=== PATIENT | female | born 1995 | race African-American/Black ===

== ENCOUNTER 2017-03-05 13:33 | Emergency (ER) | payer MEDICAID ==
[~2017-03-05] VITALS: Ht 167.6 cm; Wt 52.2 kg
[~2017-03-05 13:33] MED LIST: ATIVAN1 MG ORAL; KEFLEX500 MG ORAL; METRONIDAZOLE500 MG ORAL; NITROFURANTOIN100 MG PO; NKM; ZOFRAN4 MG ORAL
[2017-03-05] MEDS ORDERED: FLUDROCORTISON0.1 MG PO (13:45)
--- NOTE | 2017-03-05 14:06 | Emergency Room Report ---
History of Present Illness General Chief Complaint: Dizziness Source: Patient Present Illness HPI Patient is a 21-year-old female presents after syncopal episode. Patient had multiple previous episodes of syncope in the past. Patient had prior history of neurocardiogenic syncope. Patient had prior to her symptoms of feeling lightheaded prior to passing out. Patient had been taking fludrocortisone for quite some time. The patient reported having multiple episodes of similar symptoms in the past. Patient denies prior history of anemia. She states that she's had prior cardiac workup. As reports feeling somewhat weak. Allergies: Coded Allergies: No Known Allergies (Unverified , 03/29/13) Patient History Past Medical History: other - syncope Last Menstrual Period: 02/15/2017 Now: No Reviewed Nursing Documentation: PMH: Agreed, PSxH: Agreed Nursing Documentation-PMH Past Medical History: No History, Except For Hx Cardiac Problems: Yes - Neuro-cardiogenic syncope Hx Hypertension: No Hx Pacemaker: No Hx Asthma: No Hx COPD: No Hx Diabetes: No Hx Cancer: No Hx Gastrointestinal Problems: No Hx Dialysis: No Hx Neurological Problems: No Hx Cerebrovascular Accident: No Hx Seizures: No Review of Systems All Other Systems: negative except mentioned in HPI Physical Exam Vital Signs Date Time Temp Pulse Resp B/P Pulse Ox O2 Delivery O2 Flow Rate FiO2 03/05/17 13:38 98.1 98 16 118/79 98 Room Air Sp02 EP Interpretation: reviewed, normal General Appearance: normal inspection, well appearing, no apparent distress, alert, GCS 15, non-toxic Head: atraumatic ENT: normal ENT inspection, hearing grossly normal, normal voice Neck: normal inspection, full range of motion, supple, no bony tend Respiratory: normal inspection, lungs clear, normal breath sounds, no respiratory distress, no retraction, no wheezing Cardiovascular #1: normal peripheral pulses, no edema, tachycardia Gastrointestinal: normal inspection, normal bowel sounds, non tender, soft, no guarding, no hernia Genitourinary: no CVA tenderness Musculoskeletal: normal inspection, back normal, normal range of motion Neurologic: normal inspection, alert, responsive, speech normal Psychiatric: normal inspection, judgement/insight normal, mood/affect normal Skin: normal inspection, normal color, no rash Medical Decision Making Diagnostic Impression: Primary Impression: Dehydration Additional Impression: Syncope ER Course Patient presented for syncope. Differential diagnosis included but not limited to syncope versus seizure . Potential causes for syncope included arrhythmia, dehydration, acute coronary syndrome, severe anemia, pulmonary embolus. Because of complexity of patient's case laboratory testing and imaging studies were ordered. EKG was ordered. The patient was noted be somewhat tachycardic. Patient started on IV fluids. Patient was noted to have improvement in her symptoms after IV fluids. Labs Test 03/05/17 14:00 03/05/17 14:46 Urine HCG, Qualitative Negative White Blood Count 3.5 K/UL (4.8-10.8) Red Blood Count 4.22 M/UL (4.20-5.40) Hemoglobin 13.3 G/DL (12.0-16.0) Hematocrit 41.8 % (37.0-47.0) Mean Corpuscular Volume 99 FL (80-99) Mean Corpuscular Hemoglobin 31.5 PG (27.0-31.0) Mean Corpuscular Hemoglobin Concent 31.8 G/DL (32.0-36.0) Red Cell Distribution Width 13.0 % (11.6-14.8) Platelet Count 243 K/UL (150-450) Mean Platelet Volume 7.0 FL (6.5-10.1) Neutrophils (%) (Auto) 60.8 % (45.0-75.0) Lymphocytes (%) (Auto) 19.6 % (20.0-45.0) Monocytes (%) (Auto) 12.1 % (1.0-10.0) Eosinophils (%) (Auto) 6.4 % (0.0-3.0) Basophils (%) (Auto) 1.1 % (0.0-2.0) Sodium Level 141 mEQ/L (135-145) Potassium Level 4.1 mEQ/L (3.4-4.9) Chloride Level 100 mEQ/L (98-107) Carbon Dioxide Level 27 mEQ/L (20-30) Anion Gap 14 (5-15) Blood Urea Nitrogen 11 mg/dL (7-23) Creatinine 0.7 mg/dL (0.5-0.9) Estimat Glomerular Filtration Rate > 60 mL/min (>60) Glucose Level 76 mg/dL (74-106) Calcium Level 9.2 mg/dL (8.6-10.2) Total Bilirubin 0.4 mg/dL (0.0-1.2) Aspartate Amino Transf (AST/SGOT) 22 U/L (5-40) Alanine Aminotransferase (ALT/SGPT) 13 U/L (3-33) Alkaline Phosphatase 53 U/L (35-104) Total Protein 7.1 g/dL (6.6-8.7) Albumin 4.3 g/dL (3.5-5.2) Globulin 2.8 g/dL Albumin/Globulin Ratio 1.5 (1.0-2.7) EKG Diagnostic Results Rate: normal Rhythm: NSR - 85 ST Segments: other - incomplete RBBB Rhythm Strip Diag. Results EP Interpretation: yes Rhythm: NSR - 90, no PVC's, no ectopy Last Vital Signs Date Time Temp Pulse Resp B/P Pulse Ox O2 Delivery O2 Flow Rate FiO2 03/05/17 13:38 98.1 98 16 118/79 98 Room Air Status: improved Disposition: HOME, SELF-CARE Condition: Stable SlavaKeagan Mar 05, 2017 14:06
[2017-03-05 14:58] LABS: BASOPHILS % (AUTO) 1.1 % (0.0-2.0); EOSINOPHILS % (AUTO) 6.4 % (0.0-3.0); LYMPHOCYTES % (AUTO) 19.6 % (20.0-45.0); MEAN CORPUSCULAR HEMOGLOBIN 31.5 PG (27.0-31.0); MEAN CORPUSCULAR HGB CONC 31.8 G/DL (32.0-36.0); MEAN CORPUSCULAR VOLUME 99 FL (80-99); MONOCYTES % (AUTO) 12.1 % (1.0-10.0); NEUTROPHILS % (AUTO) 60.8 % (45.0-75.0); PLATELET COUNT 243 K/UL (150-450); RED BLOOD COUNT 4.22 M/UL (4.20-5.40); WHITE BLOOD COUNT 3.5 K/UL (4.8-10.8)
[2017-03-05 15:05] LABS: ALANINE AMINOTRANSFERASE 13 U/L (3-33); ALBUMIN/GLOBULIN RATIO 1.5 (1.0-2.7); ANION GAP 14 (5-15); ASPARTATE AMINO TRANSFERASE 22 U/L (5-40); CALCIUM 9.2 mg/dL (8.6-10.2); CARBON DIOXIDE 27 mEQ/L (20-30); CHLORIDE 100 mEQ/L (98-107); CREATININE 0.7 mg/dL (0.5-0.9); GLOMERULAR FILTRATION RATE > 60 mL/min (>60); HEMOLYSIS 3; POTASSIUM 4.1 mEQ/L (3.4-4.9); SODIUM 141 mEQ/L (135-145); TOTAL PROTEIN 7.1 g/dL (6.6-8.7)
[2017-03-05 16:22] VITALS: BP_SYST 123; BP_SYST 125; BP_SYST 129; BP_DIAS 66; BP_DIAS 74; BP_DIAS 75; BP_DIAS 77
[2017-03-05 16:37] VITALS: BP 129/77
[2017-03-05 16:39] VITALS: BP 129/77
--- NOTE | 2017-03-09 00:27 | Cardiology Report ---
APPROVED REPORT EKG Measurement Heart [id number] Normal sinus rhythm Nonspecific T wave abnormality Abnormal ECG
== END 2017-03-05 16:46 | disposition home or self-care (01) ==
LOC: EMR 15:03
DX: R55 Syncope and collapse (principal); E86.0 Dehydration
CPT/HCPCS: 36415; 80053; 81025; 85025; 93005; 96360; 96374

== ENCOUNTER 2017-10-29 13:39 | Emergency (ER) | payer MEDICAID ==
[~2017-10-29] VITALS: Ht 167.6 cm; Wt 53.1 kg
[~2017-10-29 13:39] MED LIST changes: +FLUDROCORTISON0.1 MG PO
[2017-10-29] MEDS ORDERED: ZYRTEC10 MG ORAL (14:00)
[2017-10-29] MEDS ORDERED: ALBUTEROL SULF8.5 GM INH (14:00)
--- NOTE | 2017-10-29 14:04 | Emergency Room Report ---
History of Present Illness General Chief Complaint: Upper Respiratory Illness Source: Patient Present Illness HPI Patient presents with complaints of sore throat Bodyache General weakness Nasal congestion symptoms ongoing for the past 7 days Patient started antibiotics about 7 days ago for a UTI and has just finished a Denies any dysuria or frequency denies any abdominal pain Denies any chest pain however she has a mild cough denies any neck pain or photophobia Allergies: Coded Allergies: No Known Allergies (Unverified , 03/29/13) Patient History Past Medical History: see triage record Pertinent Family History: none Last Menstrual Period: 10/11/17 Now: Yes : 2 Para: 0 Reviewed Nursing Documentation: PMH: Agreed, PSxH: Agreed Nursing Documentation-PMH Past Medical History: No History, Except For Hx Cardiac Problems: Yes - Neuro-cardiogenic syncope Hx Hypertension: No Hx Pacemaker: No Hx Asthma: No Hx COPD: No Hx Diabetes: No Hx Cancer: No Hx Gastrointestinal Problems: No Hx Dialysis: No Hx Neurological Problems: No Hx Cerebrovascular Accident: No Hx Seizures: No Review of Systems All Other Systems: negative except mentioned in HPI Physical Exam Vital Signs Date Time Temp Pulse Resp B/P (MAP) Pulse Ox O2 Delivery O2 Flow Rate FiO2 10/29/17 13:48 97.9 84 18 125/80 100 Room Air Sp02 EP Interpretation: reviewed, normal General Appearance: well appearing, no apparent distress Head: normocephalic, atraumatic Eyes: bilateral eye PERRL, bilateral eye EOMI ENT: hearing grossly normal, TMs + canals normal, uvula midline, other - Mild pharyngeal erythema bilaterally, no pustules Neck: full range of motion, supple, no meningismus, no bony tend Respiratory: lungs clear, normal breath sounds, no rhonchi, no respiratory distress, no retraction, no accessory muscle use Cardiovascular #1: normal peripheral pulses, regular rate, rhythm, no edema, no gallop, no JVD, no murmur Gastrointestinal: normal bowel sounds, non tender, soft, no mass, no organomegaly, non-distended, no guarding, no hernia, no pulsatile mass, no rebound Genitourinary: no CVA tenderness Musculoskeletal: normal inspection Neurologic: oriented x3, responsive, supervisor frame sample and pattern III-XII nml as tested, motor strength/ tone normal, sensory intact Psychiatric: mood/affect normal Skin: normal color, palpation normal, other - Scar midforehead Lymphatic: normal inspection, no adenopathy Medical Decision Making Diagnostic Impression: Primary Impression: flu like symptoms ER Course Multiple differentials are considered Patient's symptoms clinical exam point to what appears to be likely viral syndrome I do not suspect obvious meningitis patient's throat exam does not reveal pustules or evidence of bacterial infection Patient does not appear septic or toxic and will have initial conservative outpatient trial I did discuss with the patient that on her last several visits her white blood cell count has been low She reports that she has not had this followed up and I did reiterate the importance of following this up closely as it could be sinus multiple other medical problems Last Vital Signs Date Time Temp Pulse Resp B/P (MAP) Pulse Ox O2 Delivery O2 Flow Rate FiO2 10/29/17 13:48 97.9 84 18 125/80 100 Room Air Status: unchanged Disposition: HOME, SELF-CARE Condition: Stable Scripts Albuterol Sulfate* (ALBUTEROL SULFATE MDI*) 8.5 Gm Hfa.aer.ad 2 PUFF INH Q6H, #1 EA 0 Refills Prov: NIESHA PETERS D.O. 10/29/17 Cetirizine Hcl* (ZYRTEC*) 10 Mg Tablet 10 MG ORAL DAILY, #20 TAB 0 Refills Prov: NIESHA PETERS D.O. 10/29/17 Patient Instructions: Influenza, Adult, [id number] Additional Instructions: Patient is provided with the discharge instructions notified to follow up with primary doctor in the next 2-3 days otherwise return to the er with any worsening symptoms. Please note that this report is being documented using [employer] technology. This can lead to erroneous entry secondary to incorrect interpretation by the dictating instrument. NIESHA PETERS D.O. Oct 29, 2017 14:04
[2017-10-29 14:17] VITALS: BP 128/85
== END 2017-10-29 14:26 | disposition home or self-care (01) ==
LOC: EMR 14:08
DX: J11.1 Influenza due to unidentified influenza virus with other respiratory manifestations (principal)
CPT/HCPCS: 99284

== ENCOUNTER 2018-06-17 14:50 | Emergency (ER) | payer MEDICAID ==
[~2018-06-17] VITALS: Ht 167.6 cm; Wt 54.4 kg
[~2018-06-17 14:50] MED LIST changes: +ALBUTEROL SULF8.5 GM INH; +ZYRTEC10 MG ORAL
[2018-06-17 15:12] VITALS: BP 125/86
--- NOTE | 2018-06-17 15:21 | Emergency Room Report ---
History of Present Illness General Chief Complaint: Skin Rash/Abscess Source: Patient Present Illness HPI Patient presents with complaints of small irritated lesions in both axillary area She reports that 2 days ago she had shaved her axilla And yesterday she noticed some mild red lesions and today they have become more painful Denies any fevers or chills denies any discharge Denies any chest pain or shortness of breath denies any dysuria frequency Denies any back or flank pain Allergies: Coded Allergies: No Known Allergies (Unverified , 03/29/13) Patient History Past Medical History: see triage record Pertinent Family History: none Last Menstrual Period: 06/10/2018 Now: No Reviewed Nursing Documentation: PMH: Agreed; PSxH: Agreed Nursing Documentation-PMH Past Medical History: No History, Except For Hx Cardiac Problems: Yes - Vasovagal syncope Hx Hypertension: No Hx Pacemaker: No Hx Asthma: No Hx COPD: No Hx Diabetes: No Hx Cancer: No Hx Gastrointestinal Problems: No Hx Dialysis: No Hx Neurological Problems: No Hx Cerebrovascular Accident: No Hx Seizures: No Review of Systems All Other Systems: negative except mentioned in HPI Physical Exam Vital Signs Date Time Temp Pulse Resp B/P (MAP) Pulse Ox O2 Delivery O2 Flow Rate FiO2 06/17/18 15:03 98.4 95 15 125/86 98 Room Air 98.4 Sp02 EP Interpretation: reviewed, normal General Appearance: well appearing, no apparent distress Head: normocephalic, atraumatic Eyes: bilateral eye PERRL, bilateral eye EOMI ENT: hearing grossly normal, normal pharynx Neck: supple Respiratory: lungs clear Cardiovascular #1: regular rate, rhythm, no edema Gastrointestinal: non tender, soft Musculoskeletal: normal inspection Neurologic: alert, oriented x3, responsive Skin: other - Small follicular irritation regions bilaterally in both axilla. No obvious fluctuance. Mild erythema is noted. Patient also has evidence of keloid formations in the upper shoulder. The hair in the axilla has already started 2 grow, and therefore clear evaluation of the skin is difficult however patient could potentially have early signs of keloid formation from chronic trauma as well. Given the acute discomfort patient is placed on oral antibiotics does not appear to be systemic and is appropriate for close outpatient follow-up Lymphatic: no adenopathy Medical Decision Making Diagnostic Impression: Primary Impression: Folliculitis ER Course Patient has findings consistent with folliculitis Given the bilateral appearance is placed on oral antibiotics At this time there are no signs requiring incision No obvious abscess formation And patient requires close outpatient follow-up Last Vital Signs Date Time Temp Pulse Resp B/P (MAP) Pulse Ox O2 Delivery O2 Flow Rate FiO2 06/17/18 15:12 98.6 95 16 125/86 98 Room Air 98.6 Status: unchanged Disposition: HOME, SELF-CARE Condition: Stable Scripts Ibuprofen* (MOTRIN*) 600 Mg Tablet 600 MG ORAL Q8H PRN for For Pain, #20 TAB 0 Refills Prov: Yakov Moses DO 06/17/18 Cephalexin* (KEFLEX*) 500 Mg Capsule 500 MG ORAL EVERY 6 HOURS for 7 Days, CAP Prov: Yakov Moses DO 06/17/18 Additional Instructions: Patient is provided with the discharge instructions notified to follow up with primary doctor in the next 2-3 days otherwise return to the er with any worsening symptoms. Please note that this report is being documented using [employer] technology. This can lead to erroneous entry secondary to incorrect interpretation by the dictating instrument. Yakov Moses DO Jun 17, 2018 15:21
[2018-06-17] MEDS ORDERED: IBUPROFEN600 MG ORAL (15:23)
[2018-06-17] MEDS ORDERED: CEPHALEXIN500 MG ORAL (15:23)
[2018-06-17 15:26] VITALS: BP 125/86
== END 2018-06-17 15:26 | disposition home or self-care (01) ==
LOC: EMR 15:10
DX: L73.9 Follicular disorder, unspecified (principal)
CPT/HCPCS: 99283